=== PATIENT | female | born 1960 | race Caucasian/White ===

== ENCOUNTER 2021-05-29 10:59 | Emergency (ER) | payer OTHER ==
[2021-05-29 11:57] LABS: BASOPHIL 0.3 % (0-2); EOSINOPHIL 1.6 % (0-5); HCT 44.1 % (37.0-47.0); HGB 14.2 g/dl (12.5-16.0); LYMPHOCYTE 21.4 % (15-48); MCH 30.1 pg (25.0-31.0); MCHC 32.2 g/dL (32.0-36.0); MCV 93.4 fL (78.0-100.0); MONOCYTE 7.8 % (0-12); MPV 11.6 fL (6.0-9.5); NEUTROPHIL 68.7 % (41-80); NRBC 0; PLT 175 K/uL (150-400); RBC 4.72 M/uL (4.20-5.40); RDW 13.1 % (11.5-14.0); WBC 6.3 K/uL (4.0-10.5)
[2021-05-29 12:16] LABS: BILIRUBIN NEGATIVE (NEGATIVE); BLOOD TRACE-INTACT Ery/uL (NEGATIVE); CLARITY CLEAR (CLEAR); COLOR YELLOW (YELLOW); GLUCOSE (U) NORMAL (NORMAL); LEUKOCYTES TRACE Leu/uL (NEGATIVE); NITRITE NEGATIVE (NEGATIVE); PROTEIN NEGATIVE (NEGATIVE); SPECIFIC GRAVITY 1.015 (1.001-1.030); UROBILINOGEN 0.2 mg/dL (0.2-1.0); pH 7.5 (5.0-9.0)
[2021-05-29 12:31] LABS: INR 0.97 (0.9-1.2); PROTHROMBIN TIME 12.3 SECONDS (11.8-13.4); PTT 25.1 SECONDS (24.4-34.7)
[2021-05-29 12:35] LABS: CKMB 0.8 ng/mL (0.0-3.6)
[2021-05-29 12:36] LABS: ALBUMIN 3.8 g/dL (3.4-5.0); BILIRUBIN - TOTAL 0.4 mg/dL (0.2-1.0); BUN/CREAT RATIO (CALC) 19.7 RATIO; CREATININE 0.76 mg/dL (0.51-0.95); GLOBULIN (CALCULATION) 3.3 g/dL; POTASSIUM 4.2 mmol/L (3.5-5.1); TOTAL PROTEIN 7.1 g/dL (6.4-8.2)
[2021-05-29 12:38] LABS: URINARY RBC RARE; URINARY WBC RARE
[2021-05-29 12:39] LABS: SQUAMOUS EPITHELIAL CELLS RARE
== END 2021-05-29 16:36 | disposition other institution (70) ==
LOC: FER 10:59
PROVIDERS: Internal Medicine
DX: G45.9 Transient cerebral ischemic attack, unspecified (principal); Z20.822 Contact with and (suspected) exposure to COVID-19
CPT/HCPCS: 36415; 70450; 70551; 71045; 80053; 81001; 82550; 82553; 84484; 85025; 85610; 85730; 93005; U0002

== ENCOUNTER 2021-06-17 14:53 | Emergency (ER) | payer OTHER ==
[~2021-06-17] VITALS: Ht 170.2 cm; Wt 72.6 kg
[2021-06-17 16:02] LABS: BASOPHIL 0.5 % (0-2); EOSINOPHIL 1.9 % (0-5); HCT 42.9 % (37.0-47.0); HGB 13.8 g/dl (12.5-16.0); LYMPHOCYTE 26.6 % (15-48); MCH 30.2 pg (25.0-31.0); MCHC 32.2 g/dL (32.0-36.0); MCV 93.9 fL (78.0-100.0); MONOCYTE 9.2 % (0-12); MPV 11.5 fL (6.0-9.5); NEUTROPHIL 61.6 % (41-80); NRBC 0; PLT 178 K/uL (150-400); RBC 4.57 M/uL (4.20-5.40); RDW 13.2 % (11.5-14.0); WBC 6.4 K/uL (4.0-10.5)
[2021-06-17 16:20] LABS: BUN/CREAT RATIO (CALC) 15.9 RATIO; CREATININE 0.88 mg/dL (0.51-0.95); POTASSIUM 4.1 mmol/L (3.5-5.1)
[2021-06-17 16:50] LABS: BILIRUBIN NEGATIVE (NEGATIVE); BLOOD NEGATIVE Ery/uL (NEGATIVE); CLARITY CLEAR (CLEAR); COLOR YELLOW (YELLOW); GLUCOSE (U) NORMAL (NORMAL); LEUKOCYTES NEGATIVE Leu/uL (NEGATIVE); NITRITE NEGATIVE (NEGATIVE); PROTEIN NEGATIVE (NEGATIVE); UROBILINOGEN 0.2 mg/dL (0.2-1.0)
[2021-06-17] MEDS ORDERED: NORVASC2.5 MG PO (16:56)
== END 2021-06-17 17:37 | disposition home or self-care (01) ==
LOC: FER 14:53
PROVIDERS: Emergency Medicine
DX: I10 Essential (primary) hypertension (principal); Z86.73 Personal history of transient ischemic attack (TIA), and cerebral infarction without residual deficits; Z79.82 Long term (current) use of aspirin; Z79.02 Long term (current) use of antithrombotics/antiplatelets; Z79.899 Other long term (current) drug therapy
CPT/HCPCS: 36415; 80048; 81003; 85025; 93005